=== PATIENT | female | born 1990 | race African-American/Black ===

== ENCOUNTER 2019-09-22 15:19 | Emergency (ER) | payer OTHER ==
[~2019-09-22] VITALS: Ht 175.3 cm; Wt 90.7 kg
[2019-09-22 15:34] VITALS: BP 107/61
[2019-09-22 16:24] LABS: Basophils # (auto) 0 10 ^3/uL (0-0.2); Basophils % (auto) 0.7 % (0.0-2.0); Eosinophils # (auto) 0.1 10 ^3/uL (0-0.8); Eosinophils % (auto) 0.8 % (0.0-7.0); Hematocrit 40.5 % (36.0-46.0); Hemoglobin 13.2 g/dL (12.2-16.2); Lymphocytes # (auto) 1.8 10 ^3/uL (0.4-5.4); Lymphocytes % (auto) 26.3 % (10.0-50.0); Mean Corpuscular Hemoglobin 27.9 pg (28.0-32.0); Mean Corpuscular Hgb Conc. 32.6 g/dL (32.0-36.0); Mean Corpuscular Volume 85.5 fL (80.0-100.0); Monocytes # (auto) 0.8 10 ^3/uL (0-1.3); Neutrophils # (auto) 4.2 10 ^3/uL (1.6-8.6); Neutrophils % (auto) 60.2 % (37.0-80.0); Nucleated Red Blood Cells % 0.1 %; Platelet Count (auto) 292 10^3/uL (140-450); Red Blood Cells 4.74 10^6/uL (4.0-5.20); Red Cell Distribution Width 13.2 % (11.8-14.3)
[2019-09-22 16:36] LABS: Urine Bacteria FEW /hpf (None Seen); Urine Blood TRACE /uL (Negative); Urine Mucus FEW (None Seen); Urine WBC 5 /hpf (0 - 5)
[2019-09-22 16:39] LABS: BUN/Creatinine Ratio 12.5; Calcium 8.5 mg/dL (8.5-10.1); Potassium 3.6 mmol/L (3.5-5.1)
== END 2019-09-22 17:09 | disposition home or self-care (01) ==
LOC: ER 15:19
DX: L51.9 Erythema multiforme, unspecified (principal); N39.0 Urinary tract infection, site not specified
CPT/HCPCS: 36415; 80048; 81001; 81025; 85025

== ENCOUNTER 2020-06-06 22:57 | Emergency (ER) | payer SELFPAY ==
[~2020-06-06] VITALS: Ht 175.3 cm; Wt 74.8 kg
[2020-06-06] MEDS ORDERED: SODIUM CHLORIDE 0.9% 1,000 ML IV ONE (23:15)
[2020-06-06] MEDS ORDERED: methylPREDNISolone SOD SUCC 40 MG/ML VL IV ONE (23:45)
[2020-06-07 04:00] VITALS: BP 98/68
== END 2020-06-07 05:55 | disposition home or self-care (01) ==
LOC: EDBD 22:57 → ER 22:57
DX: T78.2XXA Anaphylactic shock, unspecified, initial encounter (principal)
CPT/HCPCS: 96361; 96374; 99283; J2920; J7030

== ENCOUNTER → 2021-07-16 | Outpatient (CLI) | payer MEDICAID ==
[2021-07-16 10:45] LABS: Basophils # (auto) 0 10 ^3/uL (0-0.2); Basophils % (auto) 0.6 % (0.0-2.0); Eosinophils # (auto) 0 10 ^3/uL (0-0.8); Eosinophils % (auto) 0.9 % (0.0-7.0); Hemoglobin 13.1 g/dL (12.2-16.2); Lymphocytes # (auto) 1.4 10 ^3/uL (0.4-5.4); Lymphocytes % (auto) 27.4 % (10.0-50.0); Mean Corpuscular Hgb Conc. 33.5 g/dL (32.0-36.0); Mean Corpuscular Volume 86.3 fL (80.0-100.0); Monocytes # (auto) 0.4 10 ^3/uL (0-1.3); Monocytes % (auto) 7.7 % (0.0-12.0); Neutrophils # (auto) 3.2 10 ^3/uL (1.6-8.6); Neutrophils % (auto) 63.4 % (37.0-80.0); Nucleated Red Blood Cells % 0.1 %; Red Blood Cells 4.51 10^6/uL (4.0-5.20); White Blood Cell 5.1 10^3/uL (4.4-10.8)
[2021-07-16 14:09] LABS: Alcohol, Urine < 3.0 mg/dL (0-10); Amphetamine Screen, Urine NEGATIVE (NEGATIVE); Barbiturate Scree,Urine NEGATIVE (NEGATIVE); Benzodiazephine Screen, Urine NEGATIVE (NEGATIVE); Cannabinoid Screen, Urine NEGATIVE (NEGATIVE); Cocaine Screen, Urine NEGATIVE (NEGATIVE); Opiate Scree,Urine NEGATIVE (NEGATIVE); Phencyclidine Screen, Urine NEGATIVE (NEGATIVE)
[2021-07-17 08:06] LABS: RPR Non Reactive (Non Reactive)
== END | disposition home or self-care (01) ==
LOC: LAB 09:05
PROVIDERS: ATTEND Obstetrics & Gynecology
DX: Z31.430 Encounter of female for testing for genetic disease carrier status for procreative management (principal)
CPT/HCPCS: 36415; 80307; 83021; 83036; 84112; 84144; 84702; 85025; 85660; 86592; 86703; 86762; 86850; 86900; 86901; 87086; 87340

== ENCOUNTER 2021-08-10 20:22 | Emergency (ER) | payer MEDICAID ==
[~2021-08-10] VITALS: Ht 175.3 cm; Wt 83.0 kg
[2021-08-10 20:22] VITALS: BP 118/74
[2021-08-10 21:48] LABS: Urine Bacteria NONE SEEN /hpf (None Seen); Urine Blood Negative /uL (Negative); Urine Specific Gravity 1.005 (1.001-1.035); Urine WBC 16 /hpf (0 - 5)
[2021-08-10] MEDS ORDERED: ACETAMINOPHEN 500 MG TAB PO ONE (22:15)
[2021-08-10] MEDS ORDERED: CEPH500T PO (23:15)
== END 2021-08-10 23:19 | disposition home or self-care (01) ==
LOC: ER 20:22
DX: O23.42 Unspecified infection of urinary tract in pregnancy, second trimester (principal); N39.0 Urinary tract infection, site not specified; R51.9 Headache, unspecified; Z3A.20 20 weeks gestation of pregnancy
CPT/HCPCS: 81001; 81025

== ENCOUNTER 2021-08-21 11:27 | Emergency (ER) | payer MEDICAID ==
[~2021-08-21] VITALS: Ht 175.3 cm; Wt 83.9 kg
[~2021-08-21 11:27] MED LIST: CEPH500T PO
[2021-08-21 12:30] LABS: Urine Bacteria FEW /hpf (None Seen); Urine Blood Negative /uL (Negative); Urine Specific Gravity 1.019 (1.001-1.035); Urine WBC 28 /hpf (0 - 5)
[2021-08-21 12:48] VITALS: BP 107/72
[2021-08-21] MEDS ORDERED: METR500T PO (13:23)
[2021-08-21] MEDS ORDERED: NITR-87 PO (13:23)
== END 2021-08-21 13:32 | disposition home or self-care (01) ==
LOC: ER 11:27
DX: N39.0 Urinary tract infection, site not specified (principal); N76.0 Acute vaginitis
CPT/HCPCS: 81001; 81025; 87210

== ENCOUNTER → 2021-11-04 | Outpatient (CLI) | payer MEDICAID ==
[~2021-11-04] MED LIST changes: +METR500T PO; +NITR-87 PO
[2021-11-04 10:31] LABS: Basophils # (auto) 0.1 10 ^3/uL (0-0.2); Basophils % (auto) 0.8 % (0.0-2.0); Eosinophils # (auto) 0.1 10 ^3/uL (0-0.8); Hematocrit 35.8 % (36.0-46.0); Hemoglobin 11.8 g/dL (12.2-16.2); Lymphocytes # (auto) 1.4 10 ^3/uL (0.4-5.4); Lymphocytes % (auto) 18.2 % (10.0-50.0); Mean Corpuscular Hemoglobin 28.4 pg (28.0-32.0); Mean Corpuscular Hgb Conc. 32.9 g/dL (32.0-36.0); Mean Corpuscular Volume 86.1 fL (80.0-100.0); Monocytes # (auto) 0.8 10 ^3/uL (0-1.3); Monocytes % (auto) 10.7 % (0.0-12.0); Neutrophils # (auto) 5.3 10 ^3/uL (1.6-8.6); Neutrophils % (auto) 69.3 % (37.0-80.0); Red Blood Cells 4.16 10^6/uL (4.0-5.20); White Blood Cell 7.6 10^3/uL (4.4-10.8)
== END | disposition home or self-care (01) ==
LOC: LAB 10:16
PROVIDERS: ATTEND Obstetrics & Gynecology
DX: O99.810 Abnormal glucose complicating pregnancy (principal); Z3A.00 Weeks of gestation of pregnancy not specified
CPT/HCPCS: 36415; 82951; 83036; 85025

== ENCOUNTER → 2021-12-02 | Outpatient (CLI) | payer MEDICAID | END | disposition home or self-care (01) | LOC: LAB 10:18 | PROVIDERS: ATTEND Obstetrics & Gynecology | DX: Z20.2 Contact with and (suspected) exposure to infections with a predominantly sexual mode of transmission (principal) | CPT/HCPCS: 84112; 86592; 86695; 86696; 86703 ==

== ENCOUNTER 2021-12-05 11:48 | Observation (INO) | payer MEDICAID ==
[~2021-12-05] VITALS: Ht 175.3 cm; Wt 83.9 kg
[2021-12-05] MEDS ORDERED: PREN-96 PO (12:12)
[2021-12-05] MEDS ORDERED: TERBUTALINE SULFATE 1 MG/ML 1ML VIAL SC ONE (12:22)
[2021-12-05] MEDS ORDERED: TERBUTALINE SULFATE 1 MG/ML 1ML VIAL SC SCH (12:30)
[2021-12-05] MEDS ORDERED: LACTATED RINGER'S 1,000 ML IV ONE (12:30)
== END 2021-12-05 13:49 | disposition home or self-care (01) ==
LOC: UNDOADMOB 11:48 → LDRP 11:48
PROVIDERS: ADMIT Obstetrics & Gynecology; ATTEND Obstetrics & Gynecology
DX: O60.03 Preterm labor without delivery, third trimester (principal); O26.893 Other specified pregnancy related conditions, third trimester; J02.9 Acute pharyngitis, unspecified; Z3A.31 31 weeks gestation of pregnancy
CPT/HCPCS: 36415; 59025; 81002; 87426; 94760; 96360; 96372; G0378; J3105

== ENCOUNTER → 2022-01-13 | Outpatient (CLI) | payer MEDICAID ==
[~2022-01-13] MED LIST changes: +PREN-96 PO
[2022-01-13 09:58] LABS: Basophils # (auto) 0 10 ^3/uL (0-0.2); Basophils % (auto) 0.7 % (0.0-2.0); Eosinophils # (auto) 0.1 10 ^3/uL (0-0.8); Eosinophils % (auto) 1.1 % (0.0-7.0); Hematocrit 36.9 % (36.0-46.0); Hemoglobin 12.1 g/dL (12.2-16.2); Lymphocytes # (auto) 1.6 10 ^3/uL (0.4-5.4); Lymphocytes % (auto) 25.6 % (10.0-50.0); Mean Corpuscular Hemoglobin 27.8 pg (28.0-32.0); Mean Corpuscular Hgb Conc. 32.9 g/dL (32.0-36.0); Mean Corpuscular Volume 84.6 fL (80.0-100.0); Monocytes # (auto) 0.6 10 ^3/uL (0-1.3); Monocytes % (auto) 9.7 % (0.0-12.0); Neutrophils # (auto) 3.9 10 ^3/uL (1.6-8.6); Neutrophils % (auto) 62.9 % (37.0-80.0); Nucleated Red Blood Cells % 0.1 %; Red Blood Cells 4.36 10^6/uL (4.0-5.20); Red Cell Distribution Width 13.8 % (11.8-14.3); White Blood Cell 6.1 10^3/uL (4.4-10.8)
[2022-01-14 07:06] LABS: RPR Non Reactive (Non Reactive)
== END | disposition home or self-care (01) ==
LOC: LAB 09:39
PROVIDERS: ATTEND Obstetrics & Gynecology
DX: Z11.3 Encounter for screening for infections with a predominantly sexual mode of transmission (principal)
CPT/HCPCS: 36415; 84112; 85025; 86592

== ENCOUNTER 2022-01-20 09:22 | Emergency (ER) | payer MEDICAID ==
[~2022-01-20] VITALS: Ht 172.7 cm; Wt 104.0 kg
[2022-01-20] MEDS ORDERED: PENICILLIN G BENZ 1200000 UNITS/2 ML SYRG IM ONE (10:00)
[2022-01-20 10:19] VITALS: BP 123/81
== END 2022-01-20 10:08 | disposition home or self-care (01) ==
LOC: ER 09:22
DX: O98.113 Syphilis complicating pregnancy, third trimester (principal); A53.9 Syphilis, unspecified; Z3A.00 Weeks of gestation of pregnancy not specified; Z79.899 Other long term (current) drug therapy
CPT/HCPCS: 96372; 99283; J0561

== ENCOUNTER 2022-02-01 00:59 | Inpatient (IN) | payer MEDICAID ==
[~2022-02-01] VITALS: Ht 175.3 cm; Wt 104.3 kg
[2022-02-01] MEDS ORDERED: DERMOPLAST 60ML BOTTLE TOP PRN (21:30)
[2022-02-01] MEDS ORDERED: WITCH HAZEL-GLYCERIN PAD TOP PRN (21:30)
[2022-02-01] MEDS ORDERED: PENICILLIN G POT 5MIL/D5 50ML 50 ML IV ONE (21:30)
[2022-02-01] MEDS ORDERED: PHISODERM TOP SOLN 240ML BTL TOP PRN (21:30)
[2022-02-01] MEDS ORDERED: PROMETHAZINE HCL 25 MG/ML 1ML IV PRN (21:30)
[2022-02-01] MEDS ORDERED: LIDOCAINE 2%HCL (LOCAL ANESTH.) INJ 20ML MDV IJ PRN (21:30)
[2022-02-01] MEDS ORDERED: BUTORPHANOL TARTRATE 2 MG/1 ML VIAL IV PRN ×2 (21:30)
[2022-02-01] MEDS ORDERED: LACT. RINGERS/OXYTOCIN 20UNITS 500 ML IV ONE ×2 (21:45→22:15)
[2022-02-01] MEDS ORDERED: METHYLERGONOVINE MALEATE 0.2 MG/ML AMP IM PRN (21:45)
[2022-02-01 22:08] LABS: Basophils # (auto) 0.1 10 ^3/uL (0-0.2); Basophils % (auto) 0.7 % (0.0-2.0); Eosinophils # (auto) 0 10 ^3/uL (0-0.8); Eosinophils % (auto) 0.4 % (0.0-7.0); Hematocrit 36.2 % (36.0-46.0); Hemoglobin 12.6 g/dL (12.2-16.2); Lymphocytes # (auto) 1.4 10 ^3/uL (0.4-5.4); Lymphocytes % (auto) 18.2 % (10.0-50.0); Mean Corpuscular Hemoglobin 29.2 pg (28.0-32.0); Mean Corpuscular Hgb Conc. 34.7 g/dL (32.0-36.0); Monocytes # (auto) 0.8 10 ^3/uL (0-1.3); Monocytes % (auto) 10.7 % (0.0-12.0); Neutrophils # (auto) 5.4 10 ^3/uL (1.6-8.6); Red Blood Cells 4.32 10^6/uL (4.0-5.20); Red Cell Distribution Width 14.1 % (11.8-14.3); White Blood Cell 7.7 10^3/uL (4.4-10.8)
[2022-02-01 22:10] LABS: Urine Bacteria FEW /hpf (None Seen); Urine Blood 1+ /uL (Negative); Urine Specific Gravity 1.006 (1.001-1.035); Urine WBC 5 /hpf (0 - 5)
[2022-02-01 22:23] LABS: INR 0.94 (0.9-1.15); Partial Thromboplastin Time 29.8 sec (24.6-33.4)
[2022-02-01] MEDS: LACTATED RINGER'S 1,000 ML IV SCH ×2 (22:34→22:35)
[2022-02-01 22:35] LABS: Alcohol, Urine < 3.0 mg/dL (0-10); Amphetamine Screen, Urine NEGATIVE (NEGATIVE); Barbiturate Scree,Urine NEGATIVE (NEGATIVE); Benzodiazephine Screen, Urine NEGATIVE (NEGATIVE); Cannabinoid Screen, Urine NEGATIVE (NEGATIVE); Cocaine Screen, Urine NEGATIVE (NEGATIVE); Opiate Scree,Urine NEGATIVE (NEGATIVE); Phencyclidine Screen, Urine NEGATIVE (NEGATIVE)
[2022-02-01 22:46] LABS: Albumin 2.8 g/dL (3.4-5.0); Bilirubin, Total 0.3 mg/dL (0.2-1.0); Calcium 8.8 mg/dL (8.5-10.1); Total Protein 5.8 g/dL (6.4-8.2)
[2022-02-01] MEDS ORDERED: fentaNYL CITRATE 100 MCG/2 ML VL IV ONE (23:30)
[2022-02-01] MEDS ORDERED: NALOXONE HCL 0.4 MG/ML VIAL IV ONE (23:30)
[2022-02-01] MEDS ORDERED: ROPIVACAINE HCL 200 ML EPI SCH (23:30)
[2022-02-01] MEDS ORDERED: LACTATED RINGER'S 1,000 ML IV ONE (23:30)
[2022-02-01] MEDS ORDERED: ePHEDrine SULFATE 50 MG/ML AMP IV ONE (23:30)
[2022-02-02] VITALS (11 sets, daily range): BP systolic 109–180; BP diastolic 60–94
[2022-02-02] MEDS ORDERED: LIDOCAINE 2%HCL (LOCAL ANESTH.) INJ 20ML MDV ONE (01:09)
[2022-02-02] MEDS ORDERED: miSOPROStol 100 mcg TAB ONE (01:28)
[2022-02-02] MEDS ORDERED: PENICILLIN G POTASSIUM 2,500,000 UNITS in D5W 5% 50 ML IV SCH (01:30)
[2022-02-02] MEDS ORDERED: miSOPROStol 100 mcg TAB SL ONE (01:30)
[2022-02-02] MEDS ORDERED: ACETAMINOPHEN 325 MG TAB PO PRN (02:15)
[2022-02-02] MEDS ORDERED: MAGNESIUM SULFATE 40MG/ML 1,000 ML IV SCH (03:00)
[2022-02-02] MEDS ORDERED: MAGNESIUM SULFATE 100 ML IV ONE ×2 (03:00)
[2022-02-02] MEDS ORDERED: LACTATED RINGER'S 1,000 ML IV SCH (03:00)
[2022-02-02] MEDS: IBUPROFEN 600 MG TAB PO PRN ×3 (03:10→17:48)
[2022-02-02 03:55] LABS: Albumin 2.8 g/dL (3.4-5.0); Calcium 9.1 mg/dL (8.5-10.1); Magnesium 1.9 mg/dL (1.6-2.6)
[2022-02-02 03:57] LABS: BUN/Creatinine Ratio 10.4
[2022-02-02 03:59] LABS: Bilirubin, Total 0.4 mg/dL (0.2-1.0); Total Protein 6.9 g/dL (6.4-8.2)
[2022-02-02] MEDS: ceFAZolin 1GM/50ML 50 ML IV SCH ×3 (04:34→20:29)
[2022-02-02] MEDS ORDERED: DOCUSATE SOD 100 MG CAP PO SCH (22:00)
[2022-02-03 03:00] VITALS: BP 118/72
[2022-02-03] MEDS: ceFAZolin 1GM/50ML 50 ML IV SCH (04:27)
[2022-02-03] MEDS: IBUPROFEN 600 MG TAB PO PRN (04:59)
[2022-02-03 06:40] VITALS: BP 124/77
[2022-02-03 11:15] VITALS: BP 127/78
[2022-02-03 21:25] LABS: Creatinine, Urine 55.4 mg/dL (30.0-125.0); Protein, Urine 9.6 mg/dL (0.0-11.9)
[2022-02-04 05:06] LABS: RPR Non Reactive (Non Reactive)
== END 2022-02-03 14:22 | disposition home or self-care (01) | DRG 560 ==
LOC: LDRP 00:59 → OBSVTOIN 21:26 → LDRP 21:27
PROVIDERS: ADMIT Obstetrics & Gynecology; ATTEND Obstetrics & Gynecology
PROC: 10E0XZZ Delivery of Products of Conception, External Approach (ICD-10-PCS; principal; 2022-02-02)
PROC: 3E0R3BZ Introduction of Anesthetic Agent into Spinal Canal, Percutaneous Approach (ICD-10-PCS; 2022-02-02)
PROC: 00HU33Z Insertion of Infusion Device into Spinal Canal, Percutaneous Approach (ICD-10-PCS; 2022-02-02)
DX: O99.824 Streptococcus B carrier state complicating childbirth (principal); Z37.0 Single live birth; Z20.822 Contact with and (suspected) exposure to COVID-19
CPT/HCPCS: 36415; 59025; 59409; 62282; 80053; 80307; 81001; 81002; 82570; 83735; 84156; 84550; 85025; 85610; 85730; 86592; 86850; 86900; 86901; 87426; 94760; 94762; 96360; 96361; 96365; 96366; G0378; J0690; J2540; J2590; J7060

== ENCOUNTER 2022-11-16 14:01 | Emergency (ER) | payer MEDICAID ==
[~2022-11-16] VITALS: Ht 175.3 cm; Wt 85.4 kg
[2022-11-16 15:51] VITALS: BP 104/64; PULSE 86; RESP 18; TEMP 98; O2SAT 98
[2022-11-16] MEDS ORDERED: KETOROLAC TROMETH 60MG/2ML VIAL IM ONE (17:00)
[2022-11-16] MEDS ORDERED: IBUP-1455 PO (17:47)
== END 2022-11-16 18:01 | disposition home or self-care (01) ==
LOC: ER 14:01
DX: S16.1XXA Strain of muscle, fascia and tendon at neck level, initial encounter (principal); S29.012A Strain of muscle and tendon of back wall of thorax, initial encounter; V43.52XA Car driver injured in collision with other type car in traffic accident, initial encounter; Y93.89 Activity, other specified; Y92.89 Other specified places as the place of occurrence of the external cause; Y99.8 Other external cause status
CPT/HCPCS: 72040; 72070; 96372; 99284; J1885

== ENCOUNTER 2023-12-29 09:56 | Emergency (ER) | payer MEDICAID ==
[~2023-12-29] VITALS: Ht 175.3 cm; Wt 88.8 kg
[~2023-12-29 09:56] MED LIST changes: +IBUP-1455 PO
--- NOTE | 2023-12-29 11:01 | ED.PDOC ---
GI ASSESSMENT HPI Comments 33 year old female presents to the ED with chief complaint of abdominal pain. Patient reports that she has been experiencing intermittent umbilical abdominal pain for the past few years since having her daughter. Patient relays that she visited her PCP who advised that it may be a hernia and ordered an US for 01/03 to be performed. Patient states she continues to have pain when it is pushed on or when doing physical activities. Patient denies any N/V/D, fever, chills, dysuria, or hematemesis. Chief Complaint: Abdominal Pain Time Seen by MD: 10:58 Primary Care Provider: DEE DEE Reviewed Notes: Nurses Notes, Medications, Allergies Allergies: Coded Allergies: No Known Drug Allergy (Verified Allergy, Unknown, 12/05/21) Home Meds Active Scripts Ibuprofen Micronized (Ibuprofen) 800 Mg Tab, 800 MG PO Q8HP PRN, #30 TAB Prov:DIANE LOFTON PAC 11/16/22 Metronidazole (Flagyl) 500 Mg Tab, 500 MG PO BID, #14 TAB Prov:JUAN MIGUEL ARREGUIN 08/21/21 Nitrofurantoin Monohydrate Mac (Macrobid) 100 Mg Cap, 100 MG PO BID for 7 Days, #14 CAP Prov:JUAN MIGUEL ARREGUIN 08/21/21 Cephalexin Monohydrate (Cephalexin) 500 Mg Tab, 1 TAB PO TID for 7 Days, #21 TAB 0 Refills Prov:MANNY MALDONADO 08/10/21 Reported Medications Vit W/ Ferrous Fumara ( One Daily) Daily Tab, 1 TAB PO DAILY, #90 TAB 3 Refills 12/05/21 Information Source: Patient Mode of Arrival: Ambulatory Timing: Months Duration: Since onset Prehospital treatment: None Quality: Aching Vomitus: None Stool: Normal Severity: Moderate Recent: None Recent Hx of: None Pain Location: Periumbilical Modifying Factors: Nothing Associated sign and symptoms: Abdominal Pain Past Medical History PAST MEDICAL HISTORY: Denies Surgical History: Denies all surgeries ASSOCIATE BROKER History: Denies all ASSOCIATE BROKER Hx Family History Family History: Reviewed,noncontributory to illness Social History Smoker: Non-Smoker Alcohol: Denies ETOH Use Drugs: Denies Drug Use Lives In: Home Constitutional: denies: chills, diaphoresis, fatigue, fever, malaise, sweats, weakness, others EENTM: denies: blurred vision, double vision, ear bleeding, ear discharge, ear drainage, ear pain, ear ringing, eye pain, eye redness, hearing loss, mouth pain, mouth swelling, nasal discharge, nose bleeding, nose congestion, nose pa in, photophobia, tearing, throat pain, throat swelling, voice changes, others Respiratory: denies: cough, hemoptysis, orthopnea, SOB at rest, shortness of breath, SOB with excertion, stridor, wheezing, others Cardiovascular: denies: chest pain, dizzy spells, diaphoresis, Dyspnea on exertion, edema, irregular heart beat, left arm pain, lightheadedness, palpitations, PND, syncope, others Gastrointestinal: reports: abdominal pain; denies: abdomen distended, blood streaked bowels, constipated, diarrhea, dysphagia, difficulty swallowing, hematemesis, melena, nausea, poor appetite, poor fluid intake, rectal bleeding, rectal pain, vomiting, others Genitourinary: denies: abnormal vagina bleeding, burning, dyspareunia, dysuria, flank pain, frequency, hematuria, incontinence, pain, , vagina discharge, urgency, others Neurological: denies: dizziness, fainting, headache, left sided numbness, left sided weakness, numbness, paresthesia, pre-existing deficit, right sided numbness, right sided weakness, seizure, speech problems, tingling, tremors, weakness, others Musculoskeletal: denies: back pain, gout, joint pain, joint swelling, muscle pain, muscle stiffness, neck pain, others Integumetry: denies: bruises, change in color, change in hair/nails, dryness, laceration, lesions, lumps, rash, wounds, others Allergic/Immunocompromised: denies: Difficulty Healing, Frequent Infections, Hives, Itching, others Hematologic/Lymphatic: denies: anemia, blood clots, easy bleeding, easy bruising, swollen glands, others Endocrine: denies: excessive hunger, excessive sweating, excessive thirst, excessive urination, flushing, intolerance to cold, intolerance to heat, unexpla ined weight gain, unexplained weight loss, others Psychiatric: denies: anxiety, bipolar disorder, depression, hopeless, panic disorder, schizophrenia, sleepless, suicidal, others All Other Systems: Reviewed and Negative Physical Exam General Appearance: No Apparent Distress, Normal HEENT: Normal ENT Inspection, PERRL/EOMI Neck: Full Range of Motion, Non-Tender, Normal, Normal Inspection Respiratory: Chest Non-Tender, Lungs Clear, No Accessory Muscle Use, No Respiratory Distress, Normal Breath Sounds Cardiovascular: No Edema, No JVD, No Murmur, No Gallop, Normal Peripheral Pulses, Regular Rate/Rhythm Breast Exam: Deferred Gastrointestinal: No Organomegaly, No Pulsatile Mass, Normal Bowel Sounds, Soft, Tenderness (Tenderness to the superficial umbilicus) Genitalia: Deferred Pelvic: Deferred Rectal: Deferred Extremities: No calf tenderness, Normal capillary refill, Normal inspection, Normal range of motion, Non-tender, No pedal edema Musculoskeletal : Apperance: Normal Neurologic: Alert, publications inspector II-XII nml as Tested, No Motor Deficits, Normal Affect, Normal Mood, No Sensory Deficits Cerebellar Function: Normal Reflexes: Normal Skin: Dry, Normal Color, Warm Lymphatic: No Adenopathy Was a procedure done? Was a procedure done?: No GI differential Dx Differential Diagnosis: Hernia X-Ray, Labs, Meds, VS Vital Signs Date Time Temp Pulse Resp B/P (MAP) Pulse Ox O2 Delivery O2 Flow Rate FiO2 12/29/23 10:05 98.1 72 16 110/80 (90) 97 Time of 1ST Reevaluation: 11:58 Reevaluation 1ST: Unchanged Patient Education/Counseling: Diagnosis, Treatment Family Education/Counseling: No Family Present Departure 1 Departure Time of Disposition: 13:00 Impression: Primary Impression: Acute UTI Additional Impression: Abdominal pain Disposition: 01 HOME / SELF CARE / HOMELESS Condition: Stable Discharged With: Self Critical Care Note Critical Care Time?: No Stability Stability form required: No Heart Score Heart Score: Heart Score Response (Comments) Value History N/A 0 EKG N/A 0 Age N/A 0 Risk Factors N/A 0 Troponin N/A 0 Total 0 I personally scribed for GIOVANA VELASQUEZ MD ([email or web address]) on 12/29/23 at 11:01. Electronically submitted by Bayron Scott ([email or web address]). GIOVNAA VELASQUEZ MD Dec 29, 2023 11:01
--- NOTE | 2023-12-29 12:31 | DVH ---
Exam: US ABDOMEN LIMITED Clinical History: periumbilical pain r/o hernia Comparison: None Technique: Targeted sonographic evaluation of the soft tissues of the periumbilical region was obtained utilizi ng grayscale and color Doppler imaging. Findings/Impression: Small fat containing umbilical hernia is present measuring 1.1 cm.
[2023-12-29] MEDS ORDERED: HYDR-4902 PO (14:34)
[2023-12-29] MEDS ORDERED: GABA-1250 PO (15:05)
[2023-12-29 15:43] VITALS: BP 122/72; PULSE 74; RESP 16; TEMP 98.8; O2SAT 97
== END 2023-12-29 15:52 | disposition home or self-care (01) ==
LOC: ER 09:56
DX: N39.0 Urinary tract infection, site not specified (principal); R10.33 Periumbilical pain; Z79.899 Other long term (current) drug therapy
CPT/HCPCS: 76705

== ENCOUNTER 2024-02-01 09:41 | Emergency (ER) | payer MEDICAID ==
[~2024-02-01] VITALS: Ht 175.3 cm; Wt 84.6 kg
[~2024-02-01 09:41] MED LIST changes: +GABA-1250 PO
[2024-02-01 10:59] VITALS: BP 93/72; PULSE 107; RESP 16; TEMP 98; O2SAT 96
--- NOTE | 2024-02-01 11:28 | ED.PDOC ---
History of Present Illness HPI Comments 33 year old presents for a dry cough Body aches and soreness Taking no medication Symptoms started 3 days ago Denies fevers chills night sweats unintentional weight loss Denies persistent chest pain, shortness of breath, leg swelling Denies history of asthma nor any breathing conditions Denies history of pneumonia Denies recent international travel Chief Complaint: Flu like Time Seen by MD: 10:09 Reviewed Notes: Nurses Notes, Medications, Allergies Information Source: Patient Past Medical History PAST MEDICAL HISTORY: Denies Surgical History: Denies all surgeries HR CLERK History: Denies all HR CLERK Hx Family History Family History: Reviewed,noncontributory to illness Social History Smoker: Non-Smoker Alcohol: Denies ETOH Use Drugs: Denies Drug Use Lives In: Home All Other Systems: Reviewed and Negative (Per HPI) Physical Exam General Appearance: No Apparent Distress, Normal HEENT: Normal ENT Inspection, Pharynx Normal, TMs Normal Neck: Full Range of Motion, Non-Tender, Normal, Normal Inspection Respiratory: Chest Non-Tender, Lungs Clear, No Accessory Muscle Use, No Respiratory Distress, Normal Breath Sounds Cardiovascular: No Edema, No JVD, No Murmur, No Gallop, Normal Peripheral Pulses, Regular Rate/Rhythm Breast Exam: Deferred Gastrointestinal: No Organomegaly, Non Tender, No Pulsatile Mass, Normal Bowel Sounds, Soft Genitalia: Deferred Pelvic: Deferred Rectal: Deferred Extremities: No calf tenderness, Normal capillary refill, Normal inspection, Normal range of motion, Non-tender, No pedal edema Musculoskeletal : Apperance: Normal Neurologic: Alert, principal military analyst II-XII nml as Tested, No Motor Deficits, Normal Affect, Normal Mood, No Sensory Deficits Cerebellar Function: Normal Reflexes: Normal Skin: Dry, Normal Color, Warm Lymphatic: No Adenopathy Was a procedure done? Was a procedure done?: No Fever Differential Dx Differential Diagnosis: Influenza X-Ray, Labs, Meds, VS Vital Signs Date Time Temp Pulse Resp B/P (MAP) Pulse Ox O2 Delivery O2 Flow Rate FiO2 02/01/24 10:59 98.0 107 16 93/72 (79) 96 98.0 02/01/24 10:59 107 16 96 Room Air 02/01/24 09:49 98.0 107 16 93/72 (79) 96 Lab Test 02/01/24 10:19 Range/Units Influenza Type A Antigen Negative Negative Influenza Type B Antigen Negative Negative SARS-CoV-2 Antigen (Rapid) Negative NEGATIVE X-Ray, Labs, Meds, VS Comment History and physical consistent of URI Take medication as prescribed No concerns for pneumonia at this time. No risk factors. No indication for antibiotics Discussed that cough can linger up to 6 weeks after viral URI ED precautions if cough does not alleviate or if cough worsens Supportive care and return precautions discussed Counseled viral infection and explained that antibiotics would not be helpful in resolving the illness sooner. Recommended vitamin C, rest, handwashing, and symptomatic care. Expect 2-week course with possibly of cough lingering up to 6 weeks. Nonpharmacological remedies for fluids has been recommended as well Patient is stable for discharge at this time. External notes reviewed. Test results and diagnostic imaging interpreted. All diagnostic findings, discharge care, education and instructions provided Follow-up with PCP in 2 to 3 days Patient verbalized understanding and agreed to treatment plan Vital signs stable, afebrile, no acute distress noted Patient ambulatory with strong steady gait Advised to return precautions for any new or worsening symptoms, return to ER immediately for re-evaluation Patient is aware that the purpose of this visit was for an acute medical emergency requiring emergent stabilization. Chronic conditions, including malignancies have not been ruled out. Patient is instructed to follow up with PCP as directed and discharge instructions for continued care and workup. If unable to arrange follow-up, patient is to return to the emergency department for reassessment. Patient (parent or legal guardian if applicable) was given verbal and written discharge instructions and acknowledges understanding. Time of 1ST Reevaluation: 14:45 Reevaluation 1ST: Improved Patient Education/Counseling: Diagnosis, Treatment Family Education/Counseling: Diagnosis, Treatment Departure 1 Departure Time of Disposition: 14:53 Impression: Primary Impression: Viral syndrome Disposition: 01 HOME / SELF CARE / HOMELESS Condition: Stable e-Prescriptions Ibuprofen Micronized (Ibuprofen) 800 Mg Tab 800 MG PO TID for 10 Days, #30 TAB 0 Refills Prov: ISIAH MANZANO CONSULTING SERVICES ASSOCIATE 02/01/24 Promethazine-Dm (Promethazine Dm 6.25-15 mg/5Ml) 1 Stephanie Stephanie 5 ML PO TID for 10 Days, #150 ML 0 Refills Prov: ISIAH MANZANO CONSULTING SERVICES ASSOCIATE 02/01/24 Discharged With: Self Critical Care Note Critical Care Time?: No Stability Stability form required: No Heart Score Heart Score: Heart Score Response (Comments) Value History N/A 0 EKG N/A 0 Age N/A 0 Risk Factors N/A 0 Troponin N/A 0 Total 0 ISIAH MANZANO NP Feb 01, 2024 11:28
[2024-02-01 14:21] LABS: Rapid Influenza A Negative (Negative); Rapid Influenza B Negative (Negative)
[2024-02-01 14:22] LABS: COVID19 ANTIGEN SOFIA FIA NEGATIVE (NEGATIVE)
[2024-02-01] MEDS ORDERED: IBUP-1455 PO (14:54)
[2024-02-01] MEDS ORDERED: PROM1SOL4 PO (14:54)
== END 2024-02-01 14:54 | disposition home or self-care (01) ==
LOC: ER 09:41
DX: B34.9 Viral infection, unspecified (principal); Z20.822 Contact with and (suspected) exposure to COVID-19
CPT/HCPCS: 36415; 87426; 87804

== ENCOUNTER 2024-05-20 23:05 | Emergency (ER) | payer MEDICAID ==
[~2024-05-20] VITALS: Ht 172.7 cm; Wt 72.6 kg
[~2024-05-20 23:05] MED LIST changes: +PROM1SOL4 PO
--- NOTE | 2024-05-21 00:16 | ED.PDOC ---
HPI Allergic reaction HPI Comments PER EMS, PATIENT C/O HIVES ON ARMS S/P EATING SHRIMP 2 HOURS AGO. PATIENT STATES SHE MIGHT BE ALLERGIC TO SHRIMP. PATIENT STATES THIS IS THE THIRD TIME THIS HAS HAPPENED TO HER AFTER EATING SHRIMP. DENIES SOB. DIFFICULTY BREATHING. THROAT SWELLING OR DIFFICULTY SWALLOWING. Chief Complaint: Allergic Reaction Time Seen by MD: 23:18 Primary Care Provider: LENIN Menendez Notes: Nurses Notes, Medications, Allergies Allergies: Coded Allergies: No Known Drug Allergy (Verified Allergy, Unknown, 12/05/21) Home Meds Active Scripts Ibuprofen Micronized (Ibuprofen) 800 Mg Tab, 800 MG PO TID for 10 Days, #30 TAB 0 Refills Prov:ISIAH MANZANO CHANGE MANAGEMENT COORDINATOR 02/01/24 Promethazine-Dm (Promethazine Dm 6.25-15 mg/5Ml) 1 Stephanie Stephanie, 5 ML PO TID for 10 Days, #150 ML 0 Refills Prov:ISIAH MANZANO CHANGE MANAGEMENT COORDINATOR 02/01/24 Gabapentin (Gabapentin) 300 Mg Cap, 1 CAP PO TID PRN for 10 Days, #90 CAP 1 Refill Prov:GIOVANA VELASQUEZ MD 12/29/23 Ibuprofen Micronized (Ibuprofen) 800 Mg Tab, 800 MG PO Q8HP PRN, #30 TAB Prov:DIANE LOFTON PAC 11/16/22 Metronidazole (Flagyl) 500 Mg Tab, 500 MG PO BID, #14 TAB Prov:JUAN MIGUEL ARREGUIN 08/21/21 Nitrofurantoin Monohydrate Mac (Macrobid) 100 Mg Cap, 100 MG PO BID for 7 Days, #14 CAP Prov:JUAN MIGUEL ARREGUIN 08/21/21 Cephalexin Monohydrate (Cephalexin) 500 Mg Tab, 1 TAB PO TID for 7 Days, #21 TAB 0 Refills Prov:MANNY MALDONADO 08/10/21 Reported Medications Vit W/ Ferrous Fumara ( One Daily) Daily Tab, 1 TAB PO DAILY, #90 TAB 3 Refills 12/05/21 Mode of Arrival: EMS Past Medical History PAST MEDICAL HISTORY: Denies Surgical History: Denies all surgeries INTEGRATION ENGINEER History: Denies all INTEGRATION ENGINEER Hx Family History Family History: Reviewed,noncontributory to illness Social History Smoker: Non-Smoker Alcohol: Denies ETOH Use Drugs: Denies Drug Use Lives In: Home Constitutional: denies: chills, diaphoresis, fatigue, fever, malaise, sweats, weakness, others EENTM: denies: blurred vision, double vision, ear bleeding, ear discharge, ear drainage, ear pain, ear ringing, eye pain, eye redness, hearing loss, mouth pain, mouth swelling, nasal discharge, nose bleeding, nose congestion, nose pain, photophobia, tearing, throat pain, throat swelling, voice changes, others Respiratory: denies: cough, hemoptysis, orthopnea, SOB at rest, shortness of breath, SOB with excertion, stridor, wheezing, others Cardiovascular: denies: chest pain, dizzy spells, diaphoresis, Dyspnea on exert ion, edema, irregular heart beat, left arm pain, lightheadedness, palpitations, PND, syncope, others Gastrointestinal: denies: abdomen distended, abdominal pain, blood streaked bowels, constipated, diarrhea, dysphagia, difficulty swallowing, hematemesis, melena, nausea, poor appetite, poor fluid intake, rectal bleeding, rectal pain, vomiting, others Genitourinary: denies: abnormal vagina bleeding, burning, dyspareunia, dysuria, flank pain, frequency, hematuria, incontinence, pain, , vagina discharge, urgency, others Neurological: denies: dizziness, fainting, headache, left sided numbness, left sided weakness, numbness, paresthesia, pre-existing deficit, right sided numbness, right sided weakness, seizure, speech problems, tingling, tremors, weakness, others Musculoskeletal: denies: back pain, gout, joint pain, joint swelling, muscle pain, muscle stiffness, neck pain, others Integumetry: reports: rash (BILATERAL ARMS AND HANDS); denies: bruises, change in color, change in hair/nails, dryness, laceration, lesions, lumps, wounds, others Allergic/Immunocompromised: denies: Difficulty Healing, Frequent Infections, Hives, Itching, others Hematologic/Lymphatic: denies: anemia, blood clots, easy bleeding, easy bru ising, swollen glands, others Endocrine: denies: excessive hunger, excessive sweating, excessive thirst, e xcessive urination, flushing, intolerance to cold, intolerance to heat, unexplained weight gain, unexplained weight loss, others Psychiatric: denies: anxiety, bipolar disorder, depression, hopeless, panic disorder, schizophrenia, sleepless, suicidal, others Physical Exam General Appearance: No Apparent Distress, Normal HEENT: Normal ENT Inspection, Pharynx Normal, TMs Normal Neck: Full Range of Motion, Non-Tender Respiratory: Lungs Clear, No Respiratory Distress, Normal Breath Sounds Cardiovascular: No Edema, No JVD, No Murmur, No Gallop, Normal Peripheral Pulses, Regular Rate/Rhythm Breast Exam: Deferred Gastrointestinal: No Organomegaly, Non Tender, No Pulsatile Mass, Normal Bowel Sounds, Soft Genitalia: Deferred Pelvic: Deferred Rectal: Deferred Extremities: Normal capillary refill, Normal inspection, Normal range of motion, Non-tender, No pedal edema Musculoskeletal : Apperance: Normal Neurologic: Alert, drug clerk II-XII nml as Tested, No Motor Deficits, Normal Affect, Normal Mood, No Sensory Deficits Cerebellar Function: Normal Reflexes: Normal Skin: Dry, Normal Color, Rash (URTICARIAL RASH BILATERAL ARMS AND HANDS NO NOTED EXCORIATIONS OR OPEN LESIONS OR DRAINAGE), Warm Lymphatic: No Adenopathy Was a procedure done? Was a procedure done?: No Differential diagnosis (all) Differential Diagnosis: Anaphylaxis, Angioedema, Bronchospasm X-Ray, Labs, Meds, VS Vital Signs Date Time Temp Pulse Resp B/P (MAP) Pulse Ox O2 Delivery O2 Flow Rate FiO2 05/21/24 00:50 97.8 63 17 96/63 (74) 99 97.8 05/21/24 00:50 63 17 99 Room Air 05/20/24 23:06 97.6 65 16 124/56 (78) 98 97.6 X-Ray, Labs, Meds, VS Comment PATIENT WAS GIVEN BENADRYL IN THE AMBULANCE. PATIENT GIVEN SOLU-MEDROL 125 MG IV PUSH AND PEPCID 20 MG IV PUSH. SHE REPORTS RELIEF IN SYMPTOMS REQUESTING DISCHARGE AT THIS TIME. ADVISED TO FOLLOW UP WITH HER PCP REFERRAL FOR AN THUMB SEWER TO CONFIRM SUSPICION OF ALLERGY TO SHRIMP. PATIENT WAS ADVISED TO AVOID SHRIMP AT THIS TIME UNTIL SHE FOLLOWS UP WITH HER PCP AND REFERRAL TO AN THUMB SEWER. ADVISED TO KEEP BENADRYL AT HOME. ER RETURN PRECAUTIONS GIVEN PATIENT INDICATES UNDERSTANDING AGREES WITH DISCHARGE PLAN OF CARE. Time of 1ST Reevaluation: 00:16 Reevaluation 1ST: Unchanged Time of 2ND Reevaluation: 01:00 Reevaluation 2ND: Improved Patient Education/Counseling: Diagnosis, Treatment, Prognosis, Need For Follow Up Family Education/Counseling: No Family Present Departure 1 Departure Time of Disposition: 01:01 Impression: Primary Impression: Allergic reaction Qualified Codes: T78.40XA - Allergy, unspecified, initial encounter Disposition: 01 HOME / SELF CARE / HOMELESS Condition: Stable Discharged With: Relative Critical Care Note Critical Care Time?: No Stability Stability form required: MATHIEU Chase May 21, 2024 00:16
[2024-05-21 00:50] VITALS: BP 96/63; PULSE 63; RESP 17; TEMP 97.8; O2SAT 99
[2024-05-21] MEDS: methylPREDNISolone SOD SUCC 125 MG/2 ML VL IV ONE (00:55)
[2024-05-21] MEDS: FAMOTIDINE (10MG/ML) 2ML VL IV ONE (00:55)
== END 2024-05-21 01:23 | disposition home or self-care (01) ==
LOC: EDBD 23:05 → ER 23:05
DX: T78.49XA Other allergy, initial encounter (principal); X58.XXXA Exposure to other specified factors, initial encounter
CPT/HCPCS: J3490